=== PATIENT | male | born 1990 | race Caucasian/White ===

== ENCOUNTER 2023-11-25 11:30 | Outpatient (CLI) | payer BC, SELFPAY | END 2023-11-25 11:31 | disposition home or self-care (01) | PROVIDERS: PCP Family Medicine | DX: Z13.79 Encounter for other screening for genetic and chromosomal anomalies (principal) | CPT/HCPCS: 36415; 86902 ==

== ENCOUNTER 2024-11-25 20:14 | Emergency (ER) | payer BC, SELFPAY ==
[2024-11-25] VITALS (16 sets, daily range): BP systolic 117–165; BP diastolic 77–86; PULSE 75–94; RESP 10–23; TEMP 36.8; O2SAT 95–99
--- NOTE | ~2024-11-25 | XR_ITS ---
XR chest 1V portable Ordering provider: Dom Brower MD History: 34 years Male with . cough . Comparison: None. FINDINGS: MEDIASTINUM: The cardiac silhouette is not enlarged. LUNGS: No infiltrates, effusions or pneumothorax. OTHER: No free air under the diaphragm. IMPRESSION: No acute cardiopulmonary pathology. Reviewed, dictated and finalized at location A.
--- OUTSIDE RECORDS SUMMARY | 2024-11-25 20:16 | XMS_ITS | Clinical Summary ---
Author Organization [facility] [address] [facility] Address [address] [place] [address] Care Team Providers Care Rn Pool Name Role Phone Manuel Davis MD Primary Care Provider [phone] [phone] Allergies No known active allergies Medications cyclobenzaprine (FLEXERIL) 5 mg tabletIndication s:Chronic tension-type headache, not intractable TAKE 1 TABLET BY MOUTH NIGHTLY NEEDED( TENSION TYPE HEADACHE) 30 tablet 9 Active ALPRAZolam (XANAX) 0.5 mg tabletIndication s:Generalized anxiety disorder TAKE 1 TABLET BY MOUTH THREE TIMES DAILY NEEDED FOR ANXIETY 45 tablet 9 Active clotrimazole-bet amethasone (LOTRISONE) creamIndications :Fungal rash of trunk Apply topically 2 (two) times a day 30 g 1 0 Active buPROPion SR (WELLBUTRIN SR) 200 mg 12 hr tabletIndication s:Generalized anxiety disorder TAKE 1 TABLET(200 MG) BY MOUTH TWICE DAILY 180 tablet 1 Active Active Problems Problem Noted Date Diagnosed Date Major depressive disorder wi th single episode, in partial remission 03/23/2020 Refused influenza vaccine 02/15/2019 BMI 25.0-25.9,adult 02/15/2019 Assessment & Plan (02/15/2019 9:30 PM CDT): Discussed healthy diet and importance of regular physical activity. BMI is acceptable for this patient. Chronic tension-type headache, not intractable 0 02/15/2019 Assessment & Plan (02/15/2019 9:32 PM CDT): Refilled fioricet. Reviewed med SE & scheduling. Will trial cyclobenzaprine to see if this helps w/tension type MATTHEW symptoms he describes. Aware that it may make him sleepy. Discussed abortive therapy: naproxen 750 mg initially. Not to exceed 1250mg daily. Not to take Excedrin Migraine and Naproxen d/t ASA interaction. To log possible triggers. Ensure adequate hydration. Reviewed red flags; what would warrant ED for more emergent evaluation. Generalized anxiety disorder 02/15/2019 Assessment & Plan (02/15/2019 9:32 PM CDT): Reports good control of anxiety w/current regimen. No changes to be made at this time. xaanx 0.5mg tid prn refill sent. Reviewed med Ses & scheduling. Reviewed red flags. Tobacco dependence 10/29/2017 Assessment & Plan (02/15/2019 9:30 PM CDT): Precontemplative. Encouraged complete smoking cessation. Discussed different types of medications & wbdl-bgd-sahzlss aides to help with cessation. Down to 2-3 cigarettes/day. Immunizations Immunization Administration Dates Next Due Influenza, Unspecified 08/04/2020,2019(Deferred: Patient Refused),08/17/2019(Deferred: Patient Refused),02/15/2019(Deferred: Patient Refused),02/15/2019(Deferred: Patient Refused),08/17/2018(Deferred: Patient Refused),05/21/2018(Deferred: Patient Refused),08/17/2017(Deferred: Patient Refused) Medical History Medical History Date Comments Anxiety Depression Family History Medical History Relation Name Comments Hypertension Father Other Father Alive and well; Cancer Mother Cancer -; Hypertension Mother Relation Name Status Comments Father Alive Mother Social History Tobacco Use Types Packs/Day Years Used Date Smoking Tobacco: Former Cigarettes Q uit: 05/25/2017 Smokeless Tobacco: Current Comments:2-3 cigs daily Alcohol Use Standard Drinks/Week Comments Yes 0 (1 standard drink = 0.6 oz pur e alcohol) 1-5 per week PHQ-2 Answer Date Recorded PHQ-2 Total Score (If total score is 3 or more points, staff should administer the PHQ-9) 0 03/23/2020 Sex and Gender Information Value Date Recorded Sex Assigned at Not on file 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 Gender Identity Not on file Sexual Orientation Not on file Obstetrics History Last Filed Vital Signs Vital Sign Reading Time Taken Comments Blood Pressure 122/70 03/23/2020 3:40 PM CDT Pulse 65 03/23/2020 3:40 PM CDT Temperature 36.6 C (97.8 F) 03/23/2020 3:40 PM CDT Respiratory Rate 16 02/15/2019 8:21 AM CDT Oxygen Saturation 98% 03/23/2020 3:40 PM CDT Inhaled Oxygen Concentration - - Weight 75.8 kg (167 lb 3.2 oz) 03/23/2020 3:40 P M CDT Height 175.3 cm (5' 9 ) 03/23/2020 3:40 PM CDT Body Mass Index 24.69 03/23/2020 3:40 PM CDT Plan of Treatment Not on file Insurance [facility] CHOICE PLUS Care Teams Rn Pool Relationship Specialty Start Date End Date Manuel Davis MD [address] [place] [address] PCP - General 04/21/07
--- OUTSIDE RECORDS SUMMARY | 2024-11-25 20:16 | XMS_ITS | Clinical Summary ---
Author Organization [facility] Address [address] [place] [address] Care Team Providers Care Product Line Manager Name Role Phone Manuel Davis MD Primary Care Provider [phone] [phone] Source Comments [facility],non-owned Affiliates and Associated Physician Practices is amultiple site organization consisting of ambulatory clinics and hospital sitesin [place], [place], [place] and [place]. This disclosure is being madepursuant to the Care Everywhere program and may not contain all information available regarding this patient. Last updated 18.[facility] Allergies No known active allergies Medications * Be aware that medications may not be up to date on this document. Alwaysverify current medications with the patient. Medication Sig Dispensed Refills Start Date End Date Status ibuprofen (MOTRIN) 200 MG tabletIndication s:Abnormal MRI, cervical spine Take 1 (one) tablet by mouth every 6 hours as needed for Pain Active Vumerity 231 MG CPDR TAKE 2 CAPSULES TWICE A DAY 120 capsule 11 10/18/2024 Active ALPRAZolam (Xanax) 0.25 MG tablet Take 1 (one) tablet by mouth 3 times daily as needed for Anxiety 30 tablet 11/14/2024 Active ALPRAZolam (Xanax) 0.25 MG tablet Take 1 (one) tablet by mouth 3 times daily as needed for Anxiety 30 tablet 05/30/2024 11/13/2024 Discontinued (Reorder) Encounters Date Type Department Care Team Description 11/13/2024 Refill [facility] [id number] [place] [phone] Jorge Martin MD MEDICATION REFILL 10/18/2024 Refill [facility] [address] [place] [address] Jorge Martin MD Refill Request from Last 3 Months Social History Tobacco Use Types Packs/Day Years Used Date Smoking Tobacco: Never Smokeless Tobacco: Never Tobacco Cessation:Counseling Given: Not Answered Alcohol Use Standard Drinks/Week Comments Yes 0 (1 standard drink = 0.6 oz pur e alcohol) Sex and Gender Information Value Date Recorded Sex Assigned at Not on file Gender Identity Not on file Sexual Orientation Not on file Last Filed Vital Signs Vital Sign Reading Time Taken Comments Blood Pressure 116/78 03/15/2024 3:28 PM CDT Pulse 72 03/15/2024 3:28 PM CDT Temperature 36.7 C (98 F) 01/12/2024 8:00 AM CDT Respiratory Rate 14 03/15/2024 3:28 PM CDT Oxygen Saturation 97% 03/15/2024 3:28 PM CDT Inhaled Oxygen Concentration - - Weight 84.4 kg (186 lb) 03/15/2024 3:28 PM CDT Height 172.7 cm (5' 8 ) 03/15/2024 3:28 PM CDT Body Mass Index 28.28 03/15/2024 3:28 PM CDT Plan of Treatment Upcoming Encounters Date Type Department Care Team (Late st Contact Info) Description 02/07/2025 2:40 PM CDT Office Visit [facility] [address] [place] [address] [place] [address] [facility] [address] [place] [address] Health Maintenance Due Date Last Done Comments HIV SCREENING 11/11/2003 HEPATITIS C SCREENING 11/06/2006 DTAP/TDAP/TD VACCINES (1 - Tdap) 11/11/2007 HEPATITIS B VACCINE (1 of 3 - 19+ 3-dose series) 11/11/2007 COVID-19 VACCINE (1 - 2023-2 5 season) 2024 DEPRESSION SCREENING 08/17/2024 INFLUENZA VACCINE (Season Ended) 2025 08/04/20 20 ZOSTER VACCINE (1 of 2) 2038 HIB VACCINE Aged Out No longer eligi ble based on patient's age to complete this topic HPV VACCINE Aged Out No longer eligi ble based on patient's age to complete this topic MENINGOCOCCAL (Group B) VACC INE SHARED DECISION-MAKING Aged Out No longer eligibl e based on patient's age to complete this topic MENINGOCOCCAL GROUPS A/C/Y/W VACCINE Aged Out No longer eligible b ased on patient's age to complete this topic PNEUMOCOCCAL VACCINE Aged Out No long er eligible based on patient's age to complete this topic Care Teams Product Line Manager Relationship Specialty Start Date End Date Manuel Davis MD [address] [place] [address] PCP - General Internal Medicine 09/17/23
--- OUTSIDE RECORDS SUMMARY | 2024-11-25 20:16 | XMS_ITS | Referral Summary ---
Author Organization [facility] [address] [facility] Address [address] [place] [address] Care Team Providers Care Sheet Metal Worker Supervisor Name Role Phone Manuel Davis MD Primary Care Provider [phone] [phone] Allergies No known active allergies Medications cyclobenzaprine [...] cessation. Discussed different types of medications & pudb-qjw-nkzmbhz aides to help with cessation. Down to 2-3 cigarettes/day. 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
--- OUTSIDE RECORDS SUMMARY | 2024-11-25 20:16 | XMS_ITS | Clinical Summary ---
Author Organization [facility] Address [address] [place] [address] Phone Care Team Providers Care Drug And Alcohol Counsellor Name Role Phone Manuel Davis MD Primary Care Provider [phone] [phone] Allergies No known active allergies Medications Diroximel Fumarate (Vumerity) 231 MG CAPSULE DELAYED RELEASE Take 462 mg by mouth in the morning and at bedtime. Active tamsulosin (FLOMAX) 0.4 MG Capsule Take 1 Capsule by mouth daily. 10 Capsule 07/28/2022 Active ketorolac (TORADOL) 10 MG Tablet Take 1 Tablet by mouth every 6 hours as needed for Moderate or more severe pain. 20 Tablet 07/28/2022 Active Social History Tobacco Use Types Packs/Day Years Used Date Smoking Tobacco: Never Smokeless Tobacco: Never Tobacco Cessation:Counseling Given: Not Answered Alcohol Use Standard Drinks/Week Comments Not Currently 2 (1 standard drink = 0.6 oz pur e alcohol) Sex and Gender Information Value Date Recorded Sex Assigned at Not on file Legal Sex Male 9:42 PM CDT Gender Identity Not on file Sexual Orientation Not on file Last Filed Vital Signs Vital Sign Reading Time Taken Comments Blood Pressure 142/87 07/28/2022 2:06 AM LCAC RADAR OPERATOR/NAVIGATOR Pulse 81 07/28/2022 2:06 AM LCAC RADAR OPERATOR/NAVIGATOR Temperature 36.8 C (98.2 F) 07/28/2022 2:06 AM LCAC RADAR OPERATOR/NAVIGATOR Respiratory Rate 17 07/28/2022 2:06 AM LCAC RADAR OPERATOR/NAVIGATOR Oxygen Saturation 100% 07/28/2022 2:06 AM LCAC RADAR OPERATOR/NAVIGATOR Inhaled Oxygen Concentration - - Weight 84.8 kg (187 lb) 07/27/2022 8:21 PM LCAC RADAR OPERATOR/NAVIGATOR Height 172.7 cm (5' 8 ) 07/27/2022 8:21 PM LCAC RADAR OPERATOR/NAVIGATOR Body Mass Index 28.43 07/27/2022 8:21 PM LCAC RADAR OPERATOR/NAVIGATOR Plan of Treatment Health Maintenance Due Date Last Done Comments Hepatitis C Virus (HCV) Screening 1988 TdaP Immunization 1990 Influenza Immunization (#1) 2024 08/04/2020, 1 10/05/2019 SARS-COV-2 Immunization ( season) 2024 Respiratory Syncytial Virus (RSV) Immunization (Adult) (1 - 1-dose 75+ series) 11/11/2063 Hepatitis B Immunization Completed 997, 09/28/1996, 08/24/1996 DTaP/Tdap/Td Immunization Discontinued 2002, 12/12/1992, 05/20/1990, Additional history exists Meningococcal Immunization (ACWY) Aged Out No longer eligible based on patient's age to complete this topic Pneumococcal Immunization Combined Aged Out No longer eligible based on patient's age to complete this topic Rotavirus Immunization Aged Out No lo nger eligible based on patient's age to complete this topic Care Teams Drug And Alcohol Counsellor Relationship Specialty Start Date [place] [address] PCP - General Internal Medicine 08/05/21
--- NOTE | 2024-11-25 20:53 | ED_ITS ---
HPI - General Adult General Chief complaint: Unspecified Stated complaint: MS flare up leg weakness, hand tingles Time Seen by Provider: 11/25/24 20:53 History of Present Illness HPI narrative: Patient 34-year-old gentleman presents emergency department with chief complaint of possible MS flare. The patient states he is followed by Neurology Dr. Lisa ospina at [facility] the patient states that he tried to messages doctor through the MyChart is not received notice from a patient states that he has had a little bit of a sore throat is just not felt well but also noticed that he is having tingling over his body and reports that his eyes are sluggish and the light bothers his eyes. The patient states this feels similar to whenever he has had his MS flared up and received IV steroids Related Data Home Medications ?Medication ?Instructions ?Recorded ?Confirmed ?Last Taken ?Type alprazolam 0.25 mg tablet mg 11/25/24 Unknown History diroximel fumarate 231 mg mg PO 11/25/24 Unknown History capsule,delayed release (Vumerity) Allergies Allergy/AdvReac Type Severity Reaction Status Date / Time No Known Allergies Allergy Verified 11/25/24 20:39 Review of Systems 2 Review of Systems: A 10 system review of systems was completed on the patient and is negative except for what is stated in the HPI. Nursing and ancillary documentation was reviewed. Exam 2 Narrative: GENERAL: Well-appearing, well-nourished, and in no acute distress. HEAD: Normocephalic, atraumatic. EYES: PERRLA and EOMI. ENT: Nares clear, no rhinorrhea or epistaxis. Mucous membranes moist. NECK: Supple. CHEST: Clear to auscultation. No respiratory distress. HEART: Regular rate and rhythm. No murmur heard. Normal peripheral pulses. ABDOMEN: Soft, nontender, nondistended, normal active bowel sounds. EXTREMITIES: Normal range of motion. No edema. SKIN: Warm, dry, no rash. NEURO: No focal deficits. Alert and oriented x3. PSYCH: Normal mood and affect. Course Vital Signs Vital signs: Vital Signs Temperature 36.8 C 11/25/24 20:18 Pulse Rate 78 11/25/24 20:18 Respiratory Rate 20 11/25/24 20:18 Blood Pressure 163/86 H 11/25/24 20:18 Pulse Oximetry 99 11/25/24 20:18 Temperature 36.8 C 11/25/24 20:18 Pulse Rate 92 11/25/24 20:43 Respiratory Rate 17 11/25/24 20:43 Blood Pressure 165/80 H 11/25/24 20:43 Pulse Oximetry 95 11/25/24 20:43 Medical Decision Making MDM Narrative Medical decision making narrative: Differential diagnosis includes electrolyte abnormality, infection, MS flare Patient said infectious workup was negative Magnesium was 1.8 the patient was given a g of magnesium in the emergency department The case was discussed with Dr. Rosales of Neurology at [facility] who is a partner of the patient's primary neurologist plan will be to give the patient a g of Solu-Medrol in the emergency department and start the patient on 4 mg of Decadron twice a day over the weekend and the patient is to call the office 1st thing Thursday morning to arrange urgent follow-up Vital Signs Vital Signs: Vital Signs Temperature 36.8 C 11/25/24 20:18 Pulse Rate 78 11/25/24 20:18 Respiratory Rate 20 11/25/24 20:18 Blood Pressure 163/86 H 11/25/24 20:18 Pulse Oximetry 99 11/25/24 20:18 Temperature 36.8 C 11/25/24 20:18 Pulse Rate 92 11/25/24 20:43 Respiratory Rate 17 11/25/24 20:43 Blood Pressure 165/80 H 11/25/24 20:43 Pulse Oximetry 95 11/25/24 20:43 Lab Data 11/25/24 21:34 11/25/24 21:34 Labs: Lab Results 11/25/24 11/25/24 Range/Units 21:34 21:54 WBC 14.6 H (4.5-10.0) K/mm3 RBC 4.83 (4.6-6.20) M/mm3 Hgb 14.2 (14.0-18.0) g/dL Hct 41.7 L (42.0-52.0) % MCV 86.3 (80-100) fl MCH 29.4 (26-34) pg MCHC 34.1 (32-36) g/dl RDW 13.5 (11.5-14.5) % Plt Count 237 (150-375) k/mm3 MPV 9.3 (7.4-10.4) fl Immature Gran % (Auto) 0.4 (0-0.5) % Neut % (Auto) 84.7 H (45.5-73.1) % Lymph % (Auto) 7.3 L (18.3-44.2) % Prairie % (Auto) 7.0 (2.6-8.5) % Eos % (Auto) 0.3 (0-4.4) % Baso % (Auto) 0.3 (0.2-1.2) % Lymph # (Auto) 1.06 (0.9-3.2) K/mm3 Prairie # (Auto) 1.0 H (0.1-0.6) K/mm3 Eos # (Auto) 0.0 (0-0.3) K/mm3 Baso # (Auto) 0.0 (0.0-0.1) K/mm3 Abs Immat Gran (auto) 0.06 H (0.00-0.031) K/mm3 Absolute Neuts (auto) 12.4 H (1.3-6.7) K/mm3 Absolute Nucleated RBC 0.000 (0.0-0.012) K/mm3 Nucleated RBC % 0.0 (0.0-0.2) % Sodium 138 (137-145) mmol/L Potassium 3.9 (3.4-5.0) mmol/L Chloride 105 (98-107) mmol/L Carbon Dioxide 26 (22-30) mmol/L Anion Gap 7 (4-12) mmol/L BUN 14 (9-20) mg/dL Creatinine 0.68 L (0.7-1.3) mg/dL Estim Creat Clear Calc 146 ml/min Estimated GFR > 60 (59 - ) Glucose 102 (65-110) mg/dL Calcium 8.6 (8.4-10.2) mg/dL Magnesium 1.8 (1.6-2.3) mg/dL Total Bilirubin 0.6 (0.2-1.3) mg/dL AST 21 (17-59) U/L ALT 18 (6-50) U/L Alkaline Phosphatase 70 (38-126) U/L Total Protein 7.0 (6.3-8.2) g/dL Albumin 4.0 (3.5-5.1) g/dL TSH (Reflex) 0.554 (0.465-4.68) uIU/mL Urine Color Yellow (Yellow) Urine Appearance Cloudy H (Clear) Urine pH 7.0 (5.0-9.0) Ur Specific [place] 1.025 (1.001-1.035) Urine Protein Negative (Negative) mg/dL Urine Glucose (UA) Negative (Negative) mg/dL Urine Ketones Trace H (Negative) mg/dL Ur Blood (Man) Negative (Negative) Urine Nitrate Negative (Negative) Urine Bilirubin Negative (Negative) Urine Urobilinogen 1.0 (<2.0) mg/dL Leukocyte Esterase Rfl Negative (Negative) BLAKE/UL Urine RBC 0-2 (0-2) /hpf Urine WBC 0-5 (0-3) /hpf Ur Squamous Epith Cells None seen (Few) /hpf Urine Bacteria None seen /hpf Urine Casts 0-2 Influenza A (RT-PCR) Negative (Negative) Influenza B (RT-PCR) Negative (Negative) RSV (RT-PCR) Negative (Negative) SARS-CoV-2 RNA (RT-PCR) Negative (Negative) Group A Strep (PCR) Not detected (Negative) Discharge Plan Discharge Clinical Impression: Multiple sclerosis exacerbation Patient Disposition: Home Condition: Stable Instructions: Antibiotic Form, Multiple Sclerosis (DC) Additional Instructions: Please take the Decadron twice daily over the weekend please call your neurologist office on Thursday as if your symptoms are continuing they may need to consider setting you up for steroid infusions Patient Language: Welsh Prescriptions: New dexamethasone 4 mg tablet 4 mg PO BID 5 Days Qty: 10 0RF No Action alprazolam 0.25 mg tablet Vumerity 231 mg capsule,delayed release(DR/EC) PO Follow-up/Referrals: Harms,Manuel Nieto M.D. [Primary Care Provider] - Time of Disposition: 23:30
[2024-11-25 21:41] LABS: Basophils Percent Auto 0.3 % (0.2-1.2); Eosinophils Percent Auto 0.3 % (0-4.4); Hematocrit 41.7 % (42.0-52.0); Hemoglobin 14.2 g/dL (14.0-18.0); Immature Granulocyte Absolute 0.06 K/mm3 (0.00-0.031); Immature Granulocyte Percent A 0.4 % (0-0.5); Lymphocytes Absolute Auto 1.06 K/mm3 (0.9-3.2); Lymphocytes Percent Auto 7.3 % (18.3-44.2); Mean Corpuscular HGB Conc 34.1 g/dl (32-36); Mean Corpuscular Hemoglobin 29.4 pg (26-34); Mean Corpuscular Volume 86.3 fl (80-100); Mean Platelet Volume 9.3 fl (7.4-10.4); Neutrophils Absolute Auto 12.4 K/mm3 (1.3-6.7); Neutrophils Percent Auto 84.7 % (45.5-73.1); Platelet Count Result 237 k/mm3 (150-375); Red Blood Count 4.83 M/mm3 (4.6-6.20); Red Cell Distribution Width 13.5 % (11.5-14.5); White Blood Count 14.6 K/mm3 (4.5-10.0)
--- OUTSIDE RECORDS SUMMARY | 2024-11-25 21:43 | XMS_ITS | Clinical Summary ---
Author Organization [facility] Address [address] [place] [address] Care Team Providers Care Braiding Machine Tender Name Role Phone Manuel Davis MD Primary Care Provider [phone] [phone] Source Comments [facility] [employer],non-owned Affiliates and Associated Physician Practices is amultiple site organization consisting of ambulatory clinics and hospital sitesin [place], [place], [place] and [place]. This disclosure is being madepursuant to the Care Everywhere program and may not contain all information available regarding this patient. Last updated 18.[facility] Allergies No known active allergies Medications * [...] Type Department Care Team Description 11/13/2024 Refill [facility] [id number] [place] [phone] Jorge Martin MD MEDICATION REFILL 10/18/2024 Refill [facility] [address] [place] [address] Jorge Martin MD Refill Request from Last [...] Description 02/07/2025 2:40 PM CDT Office Visit [facility] [address] [facility] [address] [place] [address] [place] [address] [facility] [address] [place] [address] Health Maintenance Due Date Last Done Comments [...] age to complete this topic Care Teams Braiding Machine Tender Relationship Specialty Start Date End Date Manuel Davis MD [address] [place] [address] PCP - General Internal Medicine 09/17/23
--- OUTSIDE RECORDS SUMMARY | 2024-11-25 21:43 | XMS_ITS | Clinical Summary ---
Author Organization [facility] Address [address] [place] [address] Phone Care Team Providers Care Associate Professor Of Philosophy Name Role Phone Manuel Davis MD Primary Care Provider +1 -[phone] Allergies No known active allergies Medications Diroximel [...] Comments Blood Pressure 142/87 07/28/2022 2:06 AM ELECTRICAL CONTROLS ENGINEER Pulse 81 07/28/2022 2:06 AM ELECTRICAL CONTROLS ENGINEER Temperature 36.8 C (98.2 F) 07/28/2022 2:06 AM ELECTRICAL CONTROLS ENGINEER Respiratory Rate 17 07/28/2022 2:06 AM ELECTRICAL CONTROLS ENGINEER Oxygen Saturation 100% 07/28/2022 2:06 AM ELECTRICAL CONTROLS ENGINEER Inhaled Oxygen Concentration - - Weight 84.8 kg (187 lb) 07/27/2022 8:21 PM ELECTRICAL CONTROLS ENGINEER Height 172.7 cm (5' 8 ) 07/27/2022 8:21 PM ELECTRICAL CONTROLS ENGINEER Body Mass Index 28.43 07/27/2022 8:21 PM ELECTRICAL CONTROLS ENGINEER Plan of Treatment Health Maintenance Due Date [...] age to complete this topic Care Teams Associate Professor Of Philosophy Relationship Specialty Start Date [place] [address] PCP - General Internal Medicine 08/05/21
--- OUTSIDE RECORDS SUMMARY | 2024-11-25 21:43 | XMS_ITS | Clinical Summary ---
Author Organization [facility] [address] [facility] Address [address] [place] [address] Care Team Providers Care Food Tester Name Role Phone Manuel Davis MD Primary Care Provider [phone] [phone] Allergies No known active allergies Medications cyclobenzaprine [...] cessation. Discussed different types of medications & ijtg-xth-ialkdlp aides to help with cessation. 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
--- OUTSIDE RECORDS SUMMARY | 2024-11-25 21:43 | XMS_ITS | Referral Summary ---
Author Organization [facility] [address] [facility] Address [address] [place] [address] Care Team Providers Care Lay Out Inspector Name Role Phone Manuel Davis MD Primary Care Provider +1 -[phone] Allergies No known active allergies Medications cyclobenzaprine [...] cessation. Discussed different types of medications & stov-ppy-llalrvf aides to help with cessation. 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
[2024-11-25 21:51] LABS: Alanine Aminotransferase 18 U/L (6-50); Alkaline Phosphatase 70 U/L (38-126); Anion Gap 7 mmol/L (4-12); Aspartate Amino Transferase 21 U/L (17-59); Bilirubin,Total 0.6 mg/dL (0.2-1.3); Blood Urea Nitrogen 14 mg/dL (9-20); Calcium 8.6 mg/dL (8.4-10.2); Carbon Dioxide 26 mmol/L (22-30); Chloride 105 mmol/L (98-107); Estimated CRCL calculation 146 ml/min; Estimated Glomerular Filt Rate > 60; Glucose 102 mg/dL (65-110); Magnesium 1.8 mg/dL (1.6-2.3); Potassium 3.9 mmol/L (3.4-5.0); Sodium 138 mmol/L (137-145)
[2024-11-25 22:05] LABS: Add Urine Microscopic? YES; Appearance Urine Cloudy (Clear); Bacteria Urine None Seen /hpf; Bilirubin Urine Negative (Negative); Blood Urine Negative (Negative); Color Urine Yellow (Yellow); Glucose Urine UA Negative (Negative); Ketones Urine Trace mg/dL (Negative); Leukocyte Esterase Ur Negative LEU/UL (Negative); Nitrate Urine Negative (Negative); Non Pathogenic Casts 0-2; Protein Urine Negative (Negative); RBC Urine 0-2 /hpf (0-2); Specific Grav Ur 1.025 (1.001-1.035); Squamous Epithelial Cell Urine None Seen /hpf (Few); WBC Urine 0-5 /hpf (0-3)
[2024-11-25 22:05] LABS: Strep Group A RT-PCR NOT DETECTED (Negative)
[2024-11-25] MEDS: MAGNESIUM SULF 1 GM/D5W 100 ML 1 GM/100 ML BAG IVPB (22:05)
[2024-11-25 22:16] LABS: Influenza A QL RT-PCR Negative (Negative); Influenza B QL RT-PCR Negative (Negative); RSV RNA, RT-PCR Negative (Negative); SARS-CoV-2 RNA PCR Negative (Negative)
[2024-11-25 22:22] LABS: Thyroid Stimulating Hormone Reflex 0.554 uIU/mL (0.465-4.68)
[2024-11-25] MEDS: methylPREDNISolone SOD SUCC 1,000 MG in DEXTROSE 5% IN WATER 250 ML 458.62 MG IVPB (23:44)
[2024-11-26 00:22] VITALS: BP 118/81; PULSE 88; RESP 20; O2SAT 98
== END 2024-11-26 00:27 | disposition home or self-care (01) ==
PROVIDERS: Emergency Provider Emergency Medicine; PCP Family Medicine
DX: G35 Multiple sclerosis (principal); Z20.822 Contact with and (suspected) exposure to COVID-19
CPT/HCPCS: 36415; 71045; 80053; 81001; 83735; 84443; 85025; 87637; 87651; 96365; 96367; 99284; J2919; J3475; J7060

== ENCOUNTER 2025-06-18 13:43 | Emergency (ER) | payer BC, SELFPAY ==
[2025-06-18 14:02] VITALS: BP 127/78; PULSE 87; RESP 16; TEMP 37.3; O2SAT 97
--- NOTE | 2025-06-18 14:53 | ED_ITS ---
HPI - General Adult General Chief complaint: Upper Respiratory Infection Stated complaint: sore throat Time Seen by Provider: 06/18/25 14:53 Source: patient Mode of arrival: ambulatory Limitations: no limitations History of Present Illness HPI narrative: 34-year-old male patient presents to the [facility] with complaints of a sore throat for the past 2-3 days. Patient came in because his was diagnosed positive today for strep. Patient does have history of MS. Patient states he has had some body aches, chills low-grade fevers. Related Data Home Medications ?Medication ?Instructions ?Recorded ?Confirmed ?Last Taken ?Type alprazolam 0.25 mg tablet mg 11/25/24 Unknown History diroximel fumarate 231 mg mg PO 11/25/24 Unknown Hist ory capsule,delayed release (Vumerity) Allergies Allergy/AdvReac Type Severity Reaction Status Date / Time No Known Allergies Allergy Verified 11/25/24 20:39 Review of Systems Review of Systems: CONSTITUTIONAL: Positive fever, chills, or sweats. EYES: Denies visual changes, redness, or discharge. ENT: Positive rhinorrhea, congestion, positive sore throat, or otalgia. CARDIOVASCULAR: Denies chest pain, palpitations, or edema. RESPIRATORY: Denies cough or dyspnea. GASTROINTESTINAL: Denies abdominal pain, nausea, vomiting, or diarrhea. GENITOURINARY: Denies dysuria or hematuria. SKIN: Denies rash or itching. MUSCULOSKELETAL: Denies back pain, joint pain, or myalgia. NEUROLOGIC: Denies headache, numbness, or weakness. PSYCHIATRIC: Denies anxiety or depression. [facility] Past Medical History Medical History (Updated 06/18/25 @ 15:01 by Sommer Mandujano APRN) Multiple sclerosis Comments At the time of my signature I agree with nursing past medical history, surgical, social, and family history. There is no relevant family history pertinent to the presenting complaint. Exam Narrative: GENERAL: Well-appearing, well-nourished, and in no acute distress. HEAD: Normocephalic, atraumatic. EYES: PERRLA and EOMI. ENT: Nares clear, no rhinorrhea or epistaxis. Mucous membranes moist. Posterior pharynx with erythema, tongue 3+ tonsillar enlargement no exudates or lesions present. Bilateral TMs are injected. NECK: Supple. No lymphadenopathy CHEST: Clear to auscultation. No respiratory distress. HEART: Regular rate and rhythm. No murmur heard. Normal peripheral pulses. ABDOMEN: Soft, nontender, nondistended, normal active bowel sounds. EXTREMITIES: Normal range of motion. No edema. SKIN: Warm, dry, no rash. NEURO: No focal deficits. Alert and oriented x3. Course Course Level of Care: Express Care Visit Vital Signs Vital signs: Vital Signs Temperature 37.3 C 06/18/25 14:02 Pulse Rate 87 06/18/25 14:02 Respiratory Rate 16 06/18/25 14:02 Blood Pressure 127/78 06/18/25 14:02 Pulse Oximetry 97 06/18/25 14:02 Oxygen Delivery Room Air 06/18/25 14:02 Temperature 37.3 C 06/18/25 14:02 Pulse Rate 87 06/18/25 14:02 Respiratory Rate 16 06/18/25 14:02 Blood Pressure 127/78 06/18/25 14:02 Pulse Oximetry 97 06/18/25 14:02 Oxygen Delivery Room Air 06/18/25 14:02 Vital signs reviewed. Medical Decision Making MDM Narrative Medical decision making narrative: Plan care patient is discharged home with antibiotics for the strep infection. Discussed with patient he can take Tylenol ibuprofen as needed for pain. If symptoms worsen please follow-up with your primary doctor for further evaluation. Differential Diagnosis Differential Diagnosis: Differential diagnosis: Viral pharyngitis, pharyngitis, group A strep, infectious mononucleosis, gonococcal pharyngitis, exudative pharyngitis, oral candidiasis. Chronic allergies, postnasal drip, GERD, abscess formation, but glottitis, retropharyngeal abscess formation, or airway obstruction. Vital Signs Vital Signs: Vital Signs Temperature 37.3 C 06/18/25 14:02 Pulse Rate 87 06/18/25 14:02 Respiratory Rate 16 06/18/25 14:02 Blood Pressure 127/78 06/18/25 14:02 Pulse Oximetry 97 06/18/25 14:02 Oxygen Delivery Room Air 06/18/25 14:02 Temperature 37.3 C 06/18/25 14:02 Pulse Rate 87 06/18/25 14:02 Respiratory Rate 16 06/18/25 14:02 Blood Pressure 127/78 06/18/25 14:02 Pulse Oximetry 97 06/18/25 14:02 Oxygen Delivery Room Air 06/18/25 14:02 Critical Care Time Critical Care Time Critical Care Time: No Discharge Plan Discharge Clinical Impression: Acute streptococcal pharyngitis Patient Disposition: Home Condition: Stable Instructions: Antibiotic Form, Strep Throat (ED) Additional Instructions: -Take the medication as prescribed. Throw away the toothbrush after 24hours of antibiotic. -Eat things that are easy to swallow, like tea or soup, or popsicles to suck on. You might not feel like eating or drinking, but it's important that you get enough liquids. -Oral rinses such as: Salt water gargles and/or may use topical anesthetic (eg. Chloraseptic spray) or lozenges to relieve dryness or throat pain). -Take Tylenol and ibuprofen as needed for pain and fever as directed. -Frequent hand washing or hand switch repairer is one of the best ways to prevent spread of infection. -Follow up with primary care provider in 2-3 days if condition is not improving or seek ER visit if you start breathing fast/has trouble breathing, is not drinking enough fluids, muffle voice, difficulty opening the mouth. Patient Language: Tajik Prescriptions: New amoxicillin 500 mg tablet 500 mg PO Q12H 10 Days Qty: 20 0RF No Action alprazolam 0.25 mg tablet Vumerity 231 mg capsule,delayed release(DR/EC) PO dexamethasone 4 mg tablet 4 mg PO BID 5 Days Qty: 10 0RF Follow-up/Referrals: PHYSICIAN,HEARING DOG TRAINER [Primary Care Provider, Internal Medicine] Time of Disposition: 14:59
[2025-06-18 15:07] LABS: EDCOVIDSCREEN Negative (Negative); EDINFLUASCREEN Negative (Negative); EDINFLUBSCREEN Negative (Negative); EDSTREPNEGPOS1 Positive (Negative)
== END 2025-06-18 15:25 | disposition home or self-care (01) ==
PROVIDERS: Emergency Provider Nurse Practitioner Family
DX: J02.0 Streptococcal pharyngitis (principal); Z20.822 Contact with and (suspected) exposure to COVID-19; G35.D Multiple sclerosis, unspecified
CPT/HCPCS: 87426; 87804; 87880; 99213; G0463

== ENCOUNTER 2025-06-18 20:04 | Emergency (ER) | payer BC, SELFPAY ==
--- OUTSIDE RECORDS SUMMARY | 2025-06-18 20:05 | XMS_ITS | Clinical Summary ---
Author Organization [facility] Address [address] [place] [address] Care Team Providers Care Stucco Worker Name Role Phone Manuel Davis MD Primary Care Provider [phone] Source Comments [facility],non-owned Affiliates and Associated Physician Practices is amultiple site organization consisting of ambulatory clinics and hospital sitesin [place], [place], [place] and [place]. This disclosure is being madepursuant to the Care Everywhere program and may not contain all information available regarding this patient. Last updated 18.[employer] [facility] Allergies No known active allergies Medications * Be aware that medications may not be up to date on this document. Alwaysverify current medications with the patient. ibuprofen (MOTRIN) 200 MG tabletIndicatio ns:Abnormal MRI, cervical spine Take 1 (one) tablet by mouth every 6 hours as needed for Pain Active Vumerity 231 MG CPDR TAKE 2 CAPSULES TWICE A DAY 120 capsule 11 10/18/2024 Active ALPRAZolam (Xanax) 0.25 MG tablet Take 1 (one) tablet by mouth 3 times daily as needed for Anxiety 30 tablet 11/14/2024 Active Social History Tobacco Use Types Packs/Day Years Used Date Smoking Tobacco: Never Smokeless Tobacco: Never Tobacco Cessation:Counseling Given: Not Answered Alcohol Use Standard Drinks/Week Comments Yes 0 (1 standard drink = 0.6 oz pur e alcohol) Sex and Gender Information Value Date Recorded Sex Assigned at Not on file Legal Sex Male 12:11 PM CDT Gender Identity Not on file Sexual Orientation Not on file Last Filed Vital Signs Vital Sign Reading Time Taken Comments Blood Pressure 128/82 12/05/2024 10:49 AM CDT Pulse 84 12/05/2024 10:49 AM CDT Temperature 36.7 C (98 F) 01/12/2024 8:00 AM CDT Respiratory Rate 14 12/05/2024 10:49 AM CDT Oxygen Saturation 98% 12/05/2024 10:49 AM CDT Inhaled Oxygen Concentration - - Weight 93.4 kg (206 lb) 12/05/2024 10:49 AM CDT Height 172.7 cm (5' 8) 12/05/2024 10:49 AM CDT Body Mass Index 31.32 12/05/2024 10:49 AM CDT Plan of Treatment Upcoming Encounters Date Type Department Care Team (Late st Contact Info) Description 07/17/2025 12:40 PM GIS DATABASE ADMINISTRATOR [facility] [address] [facility] [address] [facility] [address] [place] [address] [place] [address] [facility] [address] [place] [address] Health Maintenance Due Date Last Done Comments HIV SCREENING 11/11/2003 HEPATITIS C SCREENING 11/06/2006 DTAP/TDAP/TD VACCINES (1 - Tdap) 11/11/2007 HEPATITIS B VACCINE (1 of 3 - 19+ 3-dose series) 11/11/2007 HPV VACCINE (1 - 3-dose SCDM series) 11/11/2015 DEPRESSION SCREENING 08/17/2024 COVID-19 VACCINE (1 - 2023-2 5 season) 2025 INFLUENZA VACCINE (#1) 2025 08/04/2020 ZOSTER VACCINE (1 of 2) 2038 HIB [...] on patient's age to complete this topic Insurance [employer] ANTH Care Teams Stucco Worker Relationship Specialty Start Date End [place] [address] PCP - General Internal Medicine 09/17/23
--- OUTSIDE RECORDS SUMMARY | 2025-06-18 20:05 | XMS_ITS | Clinical Summary ---
Author Organization [facility] Address [address] [place] [address] Phone Care Team Providers Care Field Marketing Specialist Name Role Phone Manuel Davis MD Primary Care Provider [phone] Allergies No known active allergies Medications Diroximel [...] Comments Blood Pressure 142/87 07/28/2022 2:06 AM NOZZLE WORKER Pulse 81 07/28/2022 2:06 AM NOZZLE WORKER Temperature 36.8 C (98.2 F) 07/28/2022 2:06 AM NOZZLE WORKER Respiratory Rate 17 07/28/2022 2:06 AM NOZZLE WORKER Oxygen Saturation 100% 07/28/2022 2:06 AM NOZZLE WORKER Inhaled Oxygen Concentration - - Weight 84.8 kg (187 lb) 07/27/2022 8:21 PM NOZZLE WORKER Height 172.7 cm (5' 8) 07/27/2022 8:21 PM NOZZLE WORKER Body Mass Index 28.43 07/27/2022 8:21 PM NOZZLE WORKER Plan of Treatment Health Maintenance Due Date Last Done Comments Hepatitis C Virus (HCV) Screening 1988 TdaP Immunization 1988 Human Papillomavirus (HPV) Immunization (1 - 3-dose SCDM series) 11/11/2015 Influenza Immunization (#1) 2025 08/04/2020, 1 10/05/2019 SARS-COV-2 Immunization ( - 2024- season) 2025 Respiratory Syncytial Virus (RSV) Immunization (Adult) (1 [...] age to complete this topic Care Teams Field Marketing Specialist Relationship Specialty Start Date End Date Manuel Davis MD [address] [place] [address] PCP - General Internal Medicine 08/05/21
[2025-06-18 20:12] VITALS: BP 154/96; PULSE 109; RESP 20; TEMP 37.1; O2SAT 97
--- NOTE | 2025-06-18 20:38 | PC.NURSE ---
PT STATES HIS BLEEDING HAS STOPPED AND HE NO LONGER WISHES TO BE SEEN. HE STATES WILL RETURN IF NEEDED.
--- OUTSIDE RECORDS SUMMARY | 2025-06-18 20:43 | XMS_ITS | Clinical Summary ---
Author Organization [facility] Address [address] [place] [address] Care Team Providers Care Lead Software Developer Name Role Phone Manuel Davis MD Primary Care Provider [phone] Source Comments [facility],non-owned Affiliates and Associated Physician Practices is amultiple site organization consisting of ambulatory clinics and hospital sitesin [place], [place], [place] and [place]. This disclosure is being madepursuant to the Care Everywhere program and may not contain all information available regarding this patient. Last updated 18.[employer] [facility] Allergies No known active allergies Medications * [...] st Contact Info) Description 07/17/2025 12:40 PM ELECTRONIC SEMICONDUCTOR PROCESSOR [facility] [address] [facility] [address] [place] [address] [place] [address] [facility] [address] [place] [address] Health Maintenance Due Date Last [...] this topic Insurance [employer] Care Teams Lead Software Developer Relationship Specialty Start Date End [place] [address] PCP - General Internal Medicine 09/17/23
--- OUTSIDE RECORDS SUMMARY | 2025-06-18 20:43 | XMS_ITS | Clinical Summary ---
Author Organization [facility] Address [address] [place] [address] Phone Care Team Providers Care Clinical Applications Specialist Name Role Phone Manuel Davis MD Primary Care Provider [phone] Allergies No known active allergies Medications Diroximel [...] Comments Blood Pressure 142/87 07/28/2022 2:06 AM LEVELER Pulse 81 07/28/2022 2:06 AM LEVELER Temperature 36.8 C (98.2 F) 07/28/2022 2:06 AM LEVELER Respiratory Rate 17 07/28/2022 2:06 AM LEVELER Oxygen Saturation 100% 07/28/2022 2:06 AM LEVELER Inhaled Oxygen Concentration - - Weight 84.8 kg (187 lb) 07/27/2022 8:21 PM LEVELER Height 172.7 cm (5' 8) 07/27/2022 8:21 PM LEVELER Body Mass Index 28.43 07/27/2022 8:21 PM LEVELER Plan of Treatment Health Maintenance Due Date [...] age to complete this topic Care Teams Clinical Applications Specialist Relationship Specialty Start Date End Date Manuel Davis MD [address] [place] [address] PCP - General Internal Medicine 08/05/21
== END 2025-06-18 21:08 | disposition left against medical advice (07) ==
LOC: ANHED 20:41
DX: R04.2 Hemoptysis (principal)
CPT/HCPCS: 99199